=== PATIENT | female | born 1935 | race Caucasian/White ===

== ENCOUNTER → 2018-01-07 | Outpatient (CLI) | payer MEDICARE ==
[~2018-01-07] MED LIST: ALEN1TAB3 PO; BIMOD OP; BRIM5DRO7 OP; CALC500T42 PO; ERG400 PO; FISH OIL1 CAP PO; GLUC500C29 PO; LEV75 PO; MULT1CAP41 PO
--- NOTE | 2018-01-07 14:22 | RADIOLOGY IMAGING REPORT ---
[place] [facility] [place]: Wendy Nguyễn : 1935 MR: [id number] V: [id number] EXAM DATE: ORDERING PHYSICIAN: EBER AMARO TECHNOLOGIST: Location: [facility] [place] Patient: Wendy Nguyễn : 1935 Visit/Account:[id number] Date of Sevice: 01/07/2018 Exam type: ELBOW 3 VIEWS RIGHT History: Right elbow mass medial side Comparison: None. Findings: Three views of the right elbow demonstrate no evidence of acute fracture or dislocation or significan t arthritic change. An opaque right elbow mass is not identified. If this remains a strong clinical concern MR is recommended IMPRESSION: 1. No plain radiograph evidence of a right elbow mass. If this remains of strong concern MR is kenya mmended. Report Dictated By: Latisha Vences MD at 01/07/2018 2:17 PM Report E-Signed By: Latisha Vences MD at 01/07/2018 2:19 PM WSN:[email or web address]
--- NOTE | 2018-01-08 10:24 | RADIOLOGY IMAGING REPORT ---
FACILITY: [facility] PATIENT NAME: YI HAN : [id number] MR: [id number] V: [id number] EXAM DATE: [id number] ORDERING PHYSICIAN: EBER AMARO TECHNOLOGIST: Poonam Palacio PROCEDURE:BILATERAL DIGITAL SCREENING MAMMOGRAM WITH CAD ASSISTED INTERPRETATION & 3D TOMOSYNTHESIS COMPARISON:Prior mammograms 01/05/17, 12/24/15, 12/08/14, 12/07/13, 12/06/12, 12/05/11. INDICATIONS:screening FINDINGS: A small amount of fibroglandular tissue is seen throughout the breasts. The parenchymal pattern has remained stable allowing for difference in mammographic technique & patient positioning. There is no evidence of malignant appearing mass, malignant appearing calcifications or other secondary sign of malignancy in either breast. DIAGNOSTIC CATEGORY 1--NEGATIVE. RECOMMENDATIONS: ROUTINE MAMMOGRAM AND CLINICAL EVALUATION. IMPRESSION: BIRADS 1: Negative. No significant abnormality is seen. Dictated by: Latisha Vences M.D. on 01/07/2018 at 16:24 Transcribed by: MASHA on 01/08/2018 at 8:58 Approved by: Latisha Vences M.D. on 01/08/2018 at 10:23 [facility]
== END ==
LOC: MAMO 00:52
PROVIDERS: ATTEND Family Medicine
DX: Z12.31 Encounter for screening mammogram for malignant neoplasm of breast (principal)
CPT/HCPCS: 77063; 77067

== ENCOUNTER → 2018-06-28 | Outpatient (CLI) | payer MEDICARE ==
[~2018-06-28] MED LIST changes: +IOPAMIDOL 76% 100 ML INFUS BTL 100 ML ONE
--- NOTE | 2018-06-28 16:47 | RADIOLOGY IMAGING REPORT ---
[place] [facility] [place] Wendy Nguyễn : 1935 MR: [id number] V: [id number] EXAM DATE: ORDERING PHYSICIAN: EBER AMARO TECHNOLOGIST: Location: [facility] Patient: Wendy Nguyễn : 1935 Visit/Account:[id number] Date of Sevice: 06/28/2018 CT ABDOMEN PELVIS W/ CON HISTORY: Diarrhea, melena x2 months TECHNIQUE: Following administration of IV contrast contiguous axial images acquired through the abdom en/pelvis. Coronal and sagittal reformatting also performed.Dose Lowering Technique One of the following dose optimization techniques was utilized in the performance of this exam: Autom ated exposure control; adjustment of the mA and/or kV according to the patient's size; or use of an i terative reconstruction technique. Specific details can be referenced in the facility's radiology C T exam operational policy. CONTRAST: 75 mL Isovue-370 COMPARISON: None. FINDINGS: Visualized lung bases: There is a 7 mm noncalcified nodule inferior lateral aspect right middle lobe best seen on image 18 of series 3. There is a 6 mm noncalcified subpleural nodule anterolateral aspect right middle lobe best seen on im age 28. There is a 7 mm subpleural noncalcified nodule lateral aspect of the left lower lobe best seen on raghavendra ge 26. There is a 5 mm noncalcified nodule anterior aspect of the left lower lobe best seen on image 35. There is a 4 mm noncalcified nodule posterior lateral aspect left lower lobe best seen on image 39 an d a 2 mm subpleural nodule also seen on image 39. There are two contiguous nodules posterior aspect of the left lower lobe measuring three and [address] seen on image 45 There is a 4 mm noncalcified nodule posterior aspect of the left lower lobe best seen on image 78 . There is a trace pericardial effusion Hepatobiliary: Negative. Spleen: Negative. Adrenals: Negative. Pancreas: Negative. Kidneys ureters or bladder: There several subcentimeter cortical hypodensities in the kidneys which m ay represent cysts although are too small to characterize by CT Genitalia: Hysterectomy GI: There is no evidence of bowel wall thickening or bowel obstruction Vessels/spaces/nodes: There are moderate atherosclerotic calcifications throughout the abdomen and p stanislav Bones/soft tissues: There spondylotic changes lumbar spine. Sclerotic densities seen in the body of the sacrum and left ilium and left femoral neck may represent bone islands although clinical correla tion needed Additional findings: None pertinent. IMPRESSION: There are multiple noncalcified pulmonary nodules measuring up to 7 mm in diameter [employer] FOLLOW-UP GUIDELINES FOR NEWLY DETECTED INCIDENTAL NODULES IN PERSONS 35 YEARS OF AGE OR OLDER. *These recommendations do NOT apply to lung cancer screening, patients with immunosuppression or jacey ents with a known primary malignancy. MULTIPLE SOLID NODULES If nodule size is < 6 mm: * Low risk patient ? No routine follow-up. * High risk patient ? Optional CT at 12 months. If nodule size is 6-8 mm: * Low risk patient ? CT at 3-6 months, then consider CT at 18-24 months if no change. * High risk patient ? CT at 3-6 months, then CT at 18-24 months if no change. If nodule size is > 8 mm: * Low risk patient ? CT at 3-6 months, then consider CT at 18-24 months if no change. * High risk patient ? CT at 3-6 months, then consider CT at 18-24 months if no change. LOW RISK PATIENT: Minimal or absent history of tobacco use and of other known risk factors. HIGH RISK PATIENT: Tobacco use, family history of lung cancer, upper pulmonary lobe location of nodul e, presence of emphysema, pulmonary fibrosis, older age. Basiliahomara H, Elvira DP, Kelechio JM, et al. Guidelines for Management of Incidental Pulmonary Nodules Dete cted on CT Images: From the Fleischner Society 2017. Radiology. uchnipn No evidence of bowel wall thickening or bowel obstruction however given t e clinical history and endo scopy/colonoscopy may be helpful. Sclerotic densities in the pelvis may represent bone islands although clinical correlation needed Report Dictated By: Latisha Vences MD at 06/28/2018 4:25 PMReport E-Signed By: Latisha Vences MD at 06/28/2018 4:43 PM WSN:[email or web address]
== END ==
LOC: CT 01:24
PROVIDERS: ATTEND Family Medicine
DX: I25.10 Atherosclerotic heart disease of native coronary artery without angina pectoris (principal); R91.8 Other nonspecific abnormal finding of lung field; M47.896 Other spondylosis, lumbar region
CPT/HCPCS: 74177; Q9967

== ENCOUNTER → 2018-07-05 | Outpatient (CLI) | payer MEDICARE ==
[~2018-07-05] MED LIST changes: -IOPAMIDOL 76% 100 ML INFUS BTL 100 ML ONE; +IOPAMIDOL 76% 150 ML INFUS BTL 150 ML ONE
--- NOTE | 2018-07-05 14:44 | RADIOLOGY IMAGING REPORT ---
FACILITY: [facility] PATIENT NAME: Wendy Nguyễn : 1935 MR: [id number] V: [id number] EXAM DATE: ORDERING PHYSICIAN: EBER AMARO TECHNOLOGIST: Location: Patient: Wendy Nguyễn : 1935 Visit/Account:[id number] Date of Sevice: 07/05/2018 Examination: Computed tomography thorax without and with contrast HISTORY: Pulmonary nodules noted within the lung bases on a recent abdominal and pelvic CT scan. His tory of tobacco use. TECHNIQUE: Transaxial computed marked images are obtained of the thorax before and after the administ ration of 75 mL Isovue-370. Multiplanar reformatted images were created in the coronal and sagittal planes. One of the following dose optimization techniques was utilized in the performance of this exam: Autom ated exposure control; adjustment of the mA and/or kV according to the patient's size; or use of an i terative reconstruction technique. Specific details can be referenced in the facility's radiology C T exam operational policy. COMPARISON: None. FINDINGS: There is no axillary adenopathy identified. No enlarged hilar or mediastinal nodes are seen. There is no pericardial effusion or pleural effusion. Scattered atherosclerotic vascular calcifications are seen within the aortic arch and the descending thoracic aorta. Examination of the lung windows demonstrates bilateral pulmonary nodules. For index purposes, a righ t upper lobe nodule on image 98 history 66 measures 3 mm. A right middle lobe nodule on image 219 me asures 7 mm and is unchanged from the recent abdominal CT scan. A pleural-based nodule in the right middle lobe measures 6 mm on image 229. Interstitial opacities are seen within the right middle lobe inferiorly. Uncertain if this is related to scarring and interstitial lung disease or the nodules. On the left, interstitial opacities are seen within the left lower lobe just above the diaphragm. T here are several peripheral nodules within the left lower lobe. For index purposes, a nodule on imag e 237 measures 7 mm. Multiple additional left lower lobe nodules are identified. Within the upper l obe, there is a small peripheral nodule which measures 4 mm on image 144. Tiny nodule is seen in the left apex on image 48. There are underlying changes of centrilobular emphysema which are mild. With respect to the thoracic spine, there are mild degenerative changes identified. Within the upper abdomen, cyst is seen within the left kidney. IMPRESSION: 1. Multiple bilateral pulmonary nodules throughout both lungs. These are indeterminant. Possibilit y of metastatic disease must be considered in the differential diagnosis. Close CT follow-up recomme nded. See recommendations as described below. 2. No evidence of hilar or mediastinal adenopathy. 3. Atherosclerosis. 4. Mild underlying centrilobular emphysema. 5. Areas of septal line thickening within both lung bases. This may be related to scarring and/or i nterstitial lung disease of mild severity. F[employer] FOLLOW-UP GUIDELINES FOR NEWLY DETECTED INCIDENTAL NODULES IN PERSONS 35 YEARS OF AGE OR OLDER. *These recommendations do NOT apply to lung cancer screening, patients with immunosuppression or jacey ents with a known primary malignancy. MULTIPLE SOLID NODULES If nodule size is < 6 mm: * Low risk patient ? No routine follow-up. * High risk patient ? Optional CT at 12 months. If nodule size is 6-8 mm: * Low risk patient ? CT at 3-6 months, then consider CT at 18-24 months if no change. * High risk patient ? CT at 3-6 months, then CT at 18-24 months if no change. If nodule size is > 8 mm: * Low risk patient ? CT at 3-6 months, then consider CT at 18-24 months if no change. * High risk patient ? CT at 3-6 months, then consider CT at 18-24 months if no change. LOW RISK PATIENT: Minimal or absent history of tobacco use and of other known risk factors. HIGH RISK PATIENT: Tobacco use, family history of lung can er, upper pulmonary lobe location of nodul e, presence of emphysema, pulmonary fibrosis, older age.Ade H, Elvira DP, Juan Francisco JM, et al. Guidel anand for Management of Incidental Pulmonary Nodules Detected on CT Images: From the [employer] y 2017. Radiology. [facility] Report Dictated By: Shaq Bardales at 07/05/2018 2:18 PM Report E-Signed By: Shaq Bardales at 07/05/2018 2:41 PM WSN:[email or web address]
== END ==
LOC: CT 01:58
PROVIDERS: ATTEND Family Medicine
DX: I25.10 Atherosclerotic heart disease of native coronary artery without angina pectoris (principal); R91.8 Other nonspecific abnormal finding of lung field
CPT/HCPCS: 71270; Q9967